=== PATIENT | female | born 1975 | race Caucasian/White ===

== ENCOUNTER → 2023-08-14 17:01 | Outpatient (REF) | payer OTHER, SELFPAY | LOC: RAD 17:01 | PROVIDERS: ATTENDING PHYSICIAN Internal Medicine Critical Care Medicine; FAMILY PHYSICIAN Family Medicine | DX: J32.9 Chronic sinusitis, unspecified (principal); R06.02 Shortness of breath; R05.3 Chronic cough | CPT/HCPCS: 70486; 71250 ==

== ENCOUNTER → 2024-12-30 13:33 | Outpatient (REF) | payer OTHER, SELFPAY | LOC: DHSLP 13:33 | PROVIDERS: ATTENDING PHYSICIAN Internal Medicine; FAMILY PHYSICIAN Family Medicine | DX: G47.33 Obstructive sleep apnea (adult) (pediatric) (principal) | CPT/HCPCS: 95800 ==